=== PATIENT | female | born 2000 | race Caucasian/White ===

== ENCOUNTER 2021-08-25 18:36 | Emergency (ER) | payer OTHER, SELFPAY ==
--- NOTE | ~2021-08-25 | XR_ITS ---
EXAMINATION: XR chest 1V portable INDICATION: Transient alteration of awareness TECHNIQUE: Portable AP chest at 2138 hours COMPARISON: None available FINDINGS: The lungs are free of acute opacities. There is no pleural effusion or pneumothorax. The ca rdiomediastinal silhouette is normal. The visualized bones and soft tissues are unremarkable. IMPRESSION: 1. No acute cardiopulmonary abnormality. Reviewed, dictated and finalized at location A.
--- NOTE | ~2021-08-25 | CT_ITS ---
EXAMINATION: CT brain wo con INDICATION: Headache COMPARISON: None TECHNIQUE: Standard unenhanced head CT. The dose-length product (DLP) was 605.33 mGy-cm. The mA was a djusted according to patient size. Iterative reconstruction technique was employed. FINDINGS: There is no intracranial hemorrhage, acute infarction, or abnormal mass lesion. The ventric les are normal. There is no abnormal mass effect or midline shift. The bellamy-white matter differentiat ion is normal. The basal cisterns are patent. The orbits are normal. The paranasal sinuses, mastoids and calvarium are normal. IMPRESSION: 1. No acute intracranial abnormality. Reviewed, dictated and finalized at location A.
[2021-08-25 18:55] VITALS: BP 112/59; PULSE 95; RESP 14; TEMP 36.9; O2SAT 99
--- NOTE | 2021-08-25 18:55 | ECG_ITS ---
Measurements Intervals [place] Rate: 93 P: ND: 0 QRS: 55 QRSD: 76 T: 14 QT: 323 QTc: 402 Interpretive Statements SINUS RHYTHM MINIMAL Q WAVES- INFERIOR LEADS BASELINE ARTIFACT- I, III, AVL BORDERLINE ECG Electronically Signed On 08-25-2021 19:45:24 CDT by [place] Watts D.O.
[2021-08-25 19:16] LABS: Basophils Percent Auto 0.4 % (0.2-1.2); Eosinophils Absolute Auto 0.1 K/mm3 (0-0.3); Eosinophils Percent Auto 2.2 % (0-4.4); Hematocrit 39.5 % (37.0-47.0); Hemoglobin 13.3 g/dL (12.0-15.0); Immature Granulocyte Absolute 0.02 K/mm3 (0.00-0.031); Immature Granulocyte Percent A 0.4 % (0-0.5); Lymphocytes Absolute Auto 1.54 K/mm3 (0.9-3.2); Lymphocytes Percent Auto 27.6 % (18.3-44.2); Mean Corpuscular HGB Conc 33.7 g/dl (32-36); Mean Corpuscular Hemoglobin 32.7 pg (26-34); Mean Corpuscular Volume 97.1 fl (80-100); Monocytes Absolute Auto 0.4 K/mm3 (0.1-0.6); Monocytes Percent Auto 6.8 % (2.6-8.5); Neutrophils Absolute Auto 3.5 K/mm3 (1.3-6.7); Neutrophils Percent Auto 62.6 % (45.5-73.1); Platelet Count Result 190 k/mm3 (150-375); Red Blood Count 4.07 M/mm3 (4.2-5.4); Red Cell Distribution Width 11.7 % (11.5-14.5); White Blood Count 5.6 K/mm3 (4.5-10.0)
[2021-08-25 19:28] LABS: Anion Gap 5 mmol/L (8-16); Blood Urea Nitrogen 12 mg/dL (7-17); Calcium 9.1 mg/dL (8.4-10.2); Carbon Dioxide 30 mmol/L (22-30); Chloride 103 mmol/L (98-107); Estimated CRCL calculation 94 ml/min; Estimated Glomerular Filt Rate > 60; Glucose 89 mg/dL (65-110); Sodium 138 mmol/L (137-145)
[2021-08-25 20:43] VITALS: BP 114/76; PULSE 82; RESP 22; TEMP 36.6; O2SAT 100
--- NOTE | 2021-08-25 21:45 | ED.GENADULT ---
HPI - General Adult General Chief complaint: Syncope Stated complaint: syncopal episode on sat Time Seen by Provider: 08/25/21 21:04 Source: RN notes reviewed History of Present Illness HPI narrative: Patient presents emergency department from home for syncopal episode. Patient states that WednesdayAugust 23 at approximately 5 AM she had been sleeping and woke up and went to go get some water but states that when she was walking she began to feel dizzy and lightheaded and passed out striking her head on the door she states that since that time she has been having intermittent feelings of lightheadedness as well as a frontal headache she states that she has had no further syncopal episode she denies having any chest pain or shortness of breath prior to the syncopal episode she denies any fevers or chills chest pain abdominal pain nausea vomiting or any other symptoms. States she is not taking thing for the pain of the headache today Related Data Allergies Allergy/AdvReac Type Severity Reaction Status Date / Time No Known Allergies Allergy Verified 08/25/21 20:49 Review of Systems Review of Systems: Gen.: Denies fevers or chills Eyes: Denies eye pain or visual change ENT: Denies congestion Respiratory: Denies shortness of breath or cough CV: Denies chest pain or palpitations reports syncope GI: Denies abdominal pain nausea, emesis or diarrhea Musculoskeletal: Denies back pain or muscle pain Neuro see HPI Skin: Denies rash Except as documented, all other systems reviewed and negative [facility] Past Medical History Medical History (Updated 08/25/21 @ 23:30 by Mikhail Pena DO) Patient denies significant medical history Family History Family History (Updated 08/10/18 @ 11:52 by DOCTOR UNKNOWN) Grandparent Diabetes mellitus Hypertension Social History Social History Smoking status: Never smoker Second hand tobacco smoke exposure: No Alcohol intake: never Exam Narrative: APPEARANCE: No acute distress, nontoxic, resting in bed HEENT: Normocephalic, atraumatic, OMM, TMs clear bilaterally EYES: PERRL, EOMI NECK: Supple, nontender, full range of motion without pain, no meningismus RESPIRATORY: No respiratory distress, clear to auscultation bilaterally with no rhonchi wheezing or rales CARDIOVASCULAR: RRR s murmur ABDOMINAL: Soft, nontender, nondistended MUSCULOSKELETAL: Moves all extremities. No clubbing, cyanosis or edema. NEURO: A and O ?3, following commands, speech normal, no facial droop,muscle strength 5 out of 5 bilateral upper and lower extremities SKIN:: Warm, dry. Normal Color PSYCHIATRIC: Normal affect/mood Course Course Emergency Course: Patient remained on cardiac cath rn with no arrhythmias seen Discussed with patient results of workup and diagnosis. Discussed need for follow-up with primary care, proper use of medication, and reasons to return to the emergency department. Patient understands and agrees to current treatment plan Vital Signs Vital signs: Vital Signs Temperature 98.4 F 08/25/21 18:55 Pulse Rate 95 08/25/21 18:55 Respiratory Rate 14 08/25/21 18:55 Blood Pressure 112/59 L 08/25/21 18:55 Pulse Oximetry 99 08/25/21 18:55 Temperature 97.8 F 08/25/21 20:43 Pulse Rate 85 08/25/21 23:15 Respiratory Rate 15 08/25/21 23:08 Blood Pressure 105/76 08/25/21 23:15 Pulse Oximetry 99 08/25/21 23:08 Medical Decision Making MDM Narrative Medical decision making narrative: Patient's episode of syncope is felt due to high risk cause. Syncopal episode was brief and patient is now back to normal mental status. EKG is reviewed without high-risk changes for syncope: There are no signs of prolonged QT or Brugada syndrome. Patient ambulates with a steady gait and is felt to be a reasonable candidate for further evaluation as an outpatient Vital Signs Vital Signs: Vital Signs Temperature 98.4 F 10
[2021-08-25 22:06] LABS: Add Urine Microscopic? YES; Appearance Urine Cloudy (Clear); Bacteria Urine Trace /hpf; Bilirubin Urine Negative (Negative); Blood Urine Negative (Negative); Color Urine Yellow (Yellow); Glucose Urine UA Negative (Negative); Ketones Urine Negative (Negative); Leukocyte Esterase Ur 2+ LEU/UL (Negative); Mucus Urine Rare /lpf; Nitrate Urine Negative (Negative); Protein Urine Negative (Negative); Squamous Epithelial Cell Urine Many /hpf (Few)
[2021-08-25 22:15] LABS: Troponin I < 0.012 ng/mL (0.000-0.034)
[2021-08-25 23:08] VITALS: BP 105/69; PULSE 72; RESP 15; O2SAT 99
[2021-08-25] MEDS: NITROFURANTOIN MONOHYD MACROCR 100 MG CAP PO (23:10)
[2021-08-25] MEDS: SODIUM CHLORIDE 0.9% IV 1,000 ML 999 ML IV CONT (23:10)
[2021-08-25 23:15] VITALS: BP 105/76; BP 93/57; BP 99/71; PULSE 68; PULSE 71; PULSE 85
[2021-08-26 00:16] VITALS: BP 102/72; PULSE 71; RESP 17; O2SAT 100
== END 2021-08-26 00:20 | disposition home or self-care (01) ==
PROVIDERS: Emergency Medicine; Emergency Provider Emergency Medicine; PCP Family Medicine
DX: R55 Syncope and collapse (principal); N39.0 Urinary tract infection, site not specified; S00.93XA Contusion of unspecified part of head, initial encounter; W22.8XXA Striking against or struck by other objects, initial encounter; R94.31 Abnormal electrocardiogram [ECG] [EKG]
CPT/HCPCS: 36415; 70450; 71045; 80048; 81001; 81025; 84484; 85025; 87086; 93005; 96361; 96374; 99284; A9270; J0131; J7030

== ENCOUNTER → 2023-08-07 07:40 | Outpatient (CLI) | payer OTHER, SELFPAY ==
--- NOTE | ~2023-08-07 | US_ITS ---
EXAMINATION: US transvaginal DATE: 08/07/2023 08:02 INDICATION: Displacement of intrauterine contraceptive device, initial e TECHNIQUE: Multiple endovaginal sonographic images of the pelvis were obtained. COMPARISON: 09/06/2018 FINDINGS: Uterus: 7.3 x 2.7 x 3.8 cm. Appropriately positioned IUD. Endometrial complex measures 3 mm. Right Ovary: 3.2 x 1.8 x 2.6 cm. Vascular flow is present. 1.6 cm simple cyst. Left Ovary: 1.9 x 2.8 x 2.0 cm. Vascular flow is present. There is no free fluid in the pelvis. IMPRESSION: IUD, in good position. Otherwise normal pelvic sonogram findings. Reviewed, dictated and finalized at location K.
== END ==
PROVIDERS: PCP Nurse Practitioner; Visit Provider Nurse Practitioner
DX: T83.32XA Displacement of intrauterine contraceptive device, initial encounter (principal)
CPT/HCPCS: 76830

== ENCOUNTER 2024-01-21 16:23 | Emergency (ER) | payer OTHER, SELFPAY ==
[2024-01-21] VITALS (9 sets, daily range): BP systolic 102–103; BP diastolic 62–63; PULSE 59–89; RESP 15–25; TEMP 36.2–36.6; O2SAT 96–100
--- NOTE | 2024-01-21 16:46 | ED.HA ---
HPI - Headache General Chief Complaint: Headache Stated Complaint: migraine Time Seen by Provider: 01/21/24 16:35 History of Present Illness HPI Narrative: patient has history of migraines, possibly worse after TIA a few years ago, about 2 hours ago she started having a bad headache, took an ibuprofen, waited an hour, headache was getting worse and seemed to be behind her eyes, so took another Advil, still not better so came in here. Feeling nauseous, worse with bright light, seems to have dull pain behind her eyes and jaws. Related Data Allergies Allergy/AdvReac Type Severity Reaction Status Date / Time No Known Allergies Allergy Verified 08/25/21 20:49 Review of Systems Review of Systems: CONST: No fever. HEENT: No sore throat C/V: No chest pain RESP: No cough GI: Nausea : No dysuria. M/S: No joint pain. SKIN: No rash. NEURO: headache without focal numbness or weakness PSYCH: [No depression] [facility] Past Medical History Medical History (Updated 01/21/24 @ 18:52 by Keyla Ibanez MD) Patient denies significant medical history Family History Family History (Updated 08/10/18 @ 11:52 by DOCTOR UNKNOWN) Grandparent Diabetes mellitus Hypertension Social History Social History (Updated 02/05/22 @ 11:14 by Sandy Calle DO) Social History: patient was working full-time at a [email or web address]. She lives in a 1 level apartment with level entry. Patient was independent Smoking status: Never smoker Second hand tobacco smoke exposure: No Alcohol intake: never Exam Narrative: EXAMINATION OF ORGAN SYSTEMS/BODY AREAS: Constitutional: Vital signs per nursing GENERAL: eyes closed and looks uncomfortable in bed HEAD: Normal with no signs of head trauma. EYES: EOMI, conjunctiva normal ENT: Hearing grossly intact LUNGS: Nonlabored breathing. HEART: [Regular rate and rhythm] ABD: [Soft], [nontender to palpation] EXT: Normal range of motion SKIN: [No rashes or lesions.] NEURO: [Alert and oriented x 3. No gross focal sensory or strength deficits.] clear speech. PSYCH: Normal affect Course Vital Signs Vital signs: Vital Signs Pulse Rate 74 01/21/24 16:30 Respiratory Rate 23 H 01/21/24 16:30 Pulse Oximetry 100 01/21/24 16:30 Temperature 97.2 F L 01/21/24 18:30 Pulse Rate 77 01/21/24 19:02 Respiratory Rate 18 01/21/24 19:02 Blood Pressure 103/62 01/21/24 18:30 Pulse Oximetry 100 01/21/24 19:02 Oxygen Delivery Room Air 01/21/24 17:05 MDM - Headache MDM Narrative Medical decision making narrative: 23F presents to the emergency department for headache. Patient is hemodynamically stable. No focal neurological or cranial nerve deficits on exam. No meningeal signs. The headache was gradual in onset, it is not exertional and does not appear consistent with subarachnoid hemorrhage or intracranial bleeding. No trauma. Patient is given headache cocktail including Reglan, Benadryl. On re-evaluation, she states that she is feeling slightly better, but still has a slight headache around her temples though the pressure around her eyes has improved. I did have shared decision making with the patient, and we discussed potential imaging versus another round of medications, she would like to defer imaging at this time and try another round. I did therefore order Compazine and Benadryl and some IV fluids. On reevaluation, the patient feels significantly better with the headache resolved. No neurological deficits. Patient is comfortable going home for outpatient follow-up with primary care physician and/or neurology and provided with strict return precautions, especially for worsening headaches, neck pain/stiffness, fever or weakness, numbness/tingling or persistent vomiting. Discharge Plan Discharge Clinical Impression: Migraine Patient Disposition: Home, Self-Care Condition: Stable Instructions: Antibiotic Form, Migraine Headache (ED) Additional I
[2024-01-21] MEDS: METOCLOPRAMIDE HCL INJ 10 MG/2 ML VIAL IM (16:56)
[2024-01-21] MEDS: diphenhydrAMINE HCl CAP 25 MG CAPSULE PO (16:56)
--- NOTE | 2024-01-21 17:22 | PC.NURSE ---
Pt had large episode of emesis walking to bathroom. Assisted back to bed shortly after.
[2024-01-21] MEDS: diphenhydrAMINE HCl INJ 50 MG/ML VIAL 25 MG IV PUSH (18:21)
[2024-01-21] MEDS: LACTATED RINGERS 1,000 ML 999 ML IV CONT (18:21)
[2024-01-21] MEDS: PROCHLORPERAZINE EDISYLATE 10 MG/2 ML VIAL IV PUSH (18:21)
== END 2024-01-21 19:16 | disposition home or self-care (01) ==
PROVIDERS: Emergency Provider Emergency Medicine; PCP Family Medicine
DX: G43.909 Migraine, unspecified, not intractable, without status migrainosus (principal); Z86.73 Personal history of transient ischemic attack (TIA), and cerebral infarction without residual deficits; Z79.01 Long term (current) use of anticoagulants
CPT/HCPCS: 96361; 96372; 96374; 96375; 99284; A9270; J0780; J1200; J2765; J7120